=== PATIENT | female | born 1965 | race Hispanic/Latino ===

== ENCOUNTER 2019-02-19 07:12 | Observation (INO) | payer BC ==
[~2019-02-19] VITALS: Ht 157.5 cm; Wt 72.6 kg
[2019-02-19 07:54] LABS: BASOPHILS # (AUTO) 0.1 (0.0-0.1); BASOPHILS % 0.7 % (0.0-1.0); EOSINOPHILS # (AUTO) 0.1 (0.0-0.4); EOSINOPHILS % 1.6 % (0.0-6.0); HEMATOCRIT 41.7 % (34.2-44.1); HEMOGLOBIN 14.9 g/dL (12.0-16.0); LYMPHOCYTES # (AUTO) 2.7 (1.0-3.2); MEAN CORPUSCULAR HEMOGLOBIN 30.2 pg (28-32); MEAN CORPUSCULAR HGB CONC 35.7 g/dL (31-35); MEAN CORPUSCULAR VOLUME 84.6 fL (81-99); MONOCYTES # (AUTO) 0.6 (0.2-0.8); MONOCYTES % 7.7 % (4.4-11.3); NEUTROPHILS # (AUTO) 4.2 (2.1-6.9); NEUTROPHILS % 54.6 % (38.7-80.0); PLATELET COUNT 200 x10e3/uL (140-360); RED BLOOD COUNT 4.93 x10e6/uL (3.6-5.1); RED CELL DISTRIBUTION WIDTH 13.3 % (11.7-14.4)
[2019-02-19 07:56] LABS: BILIRUBIN,URINE NEGATIVE (NEGATIVE); CLARITY,URINE SL CLOUDY (CLEAR); COLOR,URINE ORANGE (YELLOW); KETONES,URINE NEGATIVE (NEGATIVE); LEUKOCYTE ESTERASE ,URINE NEGATIVE (NEGATIVE); NITRITE,URINE NEGATIVE (NEGATIVE); PROTEIN,URINE DIPSTICK NEGATIVE (NEGATIVE); URINE UROBILINOGEN 0.2 mg/dL (0.2 - 1)
[2019-02-19 08:28] LABS: ALANINE AMINOTRANSFERASE 40 IU/L (0-55); ALBUMIN 4.1 g/dL (3.5-5.0); ALBUMIN/GLOBULIN RATIO 1.4 (0.8-2.0); ALKALINE PHOSPHATASE 119 IU/L (40-150); ANION GAP 11.2 mmol/L (8-16); BLOOD UREA NITROGEN 12 mg/dL (7-26); BUN/CREATININE RATIO 16 (6-25); CALCIUM 9.6 mg/dL (8.4-10.2); CARBON DIOXIDE 26 mmol/L (22-29); CHLORIDE 105 mmol/L (98-107); CREATINE KINASE 46 IU/L (29-168); CREATININE, SERUM 0.75 mg/dL (0.57-1.11); EST GLOMERULAR FILTRATION RATE > 60 ML/MIN (60-); GLUCOSE 140 mg/dL (74-118); POTASSIUM 3.2 mmol/L (3.5-5.1); SODIUM 139 mmol/L (136-145)
--- NOTE | 2019-02-19 08:29 | Diagnostic Imaging Report ---
EXAMINATION: CHEST SINGLE (PORTABLE) INDICATION: Chest pain. COMPARISON: None FINDINGS: TUBES and LINES: None. LUNGS: Lungs are well inflated. There is a 1.2 cm nodular opacity at the right lung apex. There is hyperdensity at the right lung apex at the location of the first rib, which may represent overlying bone versus apical calcifications. Mild patchy left basilar opacity, likely atelectasis. No evidence of pulmonary edema. PLEURA: No pleural effusion or pneumothorax. HEART AND MEDIASTINUM: The cardiomediastinal silhouette is unremarkable. BONES AND SOFT TISSUES: No acute osseous abnormality. UPPER ABDOMEN: No free air under the diaphragm. IMPRESSION: No acute radiographic abnormality. A 1.2 cm nodular opacity at the right lung apex. Chest CT is recommended for further evaluation. Signed by: Dr. Hamlet Victor MD on 02/19/2019 8:26 AM
[2019-02-19] MEDS ORDERED: ASPIRIN 325 MG TAB PO ONE (08:45)
[2019-02-19 08:50] LABS: INR 0.86; PROTHROMBIN TIME 12.2 seconds (11.9-14.5)
[2019-02-19 08:51] LABS: PARTIAL THROMBOPLASTIN TIME 32.6 seconds (23.8-35.5)
[2019-02-19 09:06] LABS: EPITHELIAL CELLS,URINE RARE /LPF; RBC,URINE 0-5 /HPF (0-5)
[2019-02-19] MEDS ORDERED: POTASSIUM CHLORIDE 20 MEQ TAB CR PO STA (10:21)
--- NOTE | 2019-02-19 11:14 | Diagnostic Imaging Report ---
EXAM: CT Chest WITH contrast- Pulmonary Embolism Protocol INDICATION: Abdominal pain, tachycardia, query pulmonary embolism. Possible pulmonary nodule on chest radiograph. COMPARISON: Chest radiograph 02/19/2019. TECHNIQUE: Chest was scanned utilizing a multidetector helical scanner from the lung apex through the level of the diaphragm after administration of IV contrast. Thin section reconstructions were obtained with special concentration on the pulmonary arteries. Coronal and sagittal reformations were obtained. Pulmonary embolism protocol was performed. IV CONTRAST: 100 cc of Isovue 370 RADIATION DOSE: Total DLP: 554.5 mGy*cm Dose modulation, iterative reconstruction, and/or weight based adjustment of the mA/kV was utilized to reduce the radiation dose to as low as reasonably achievable. COMPLICATIONS: None FINDINGS: LINES/ TUBES: None. PULMONARY ARTERIES: No filling defect is identified within the pulmonary arteries to the segmental level. The subsegmental pulmonary arteries are not well opacified. Main pulmonary artery measures 2.5 cm in diameter. LUNGS AND AIRWAYS: The central airways are patent. There is biapical pleural-parenchymal opacity, consistent with prior granulomatous disease. A bone island in the right anterior third rib corresponds to the opacity noted on prior chest radiograph without definite pulmonary nodule. Scattered dependent atelectasis. Mild mosaic attenuation. No evidence of pneumonia or pulmonary edema. PLEURA: The pleural spaces are clear. HEART AND MEDIASTINUM: The thyroid gland is normal. No mediastinal, hilar or axillary lymphadenopathy. The heart is normal in size.. There is no pericardial effusion. . UPPER ABDOMEN: Limited contrast-enhanced views of the upper abdomen. Hepatic steatosis. Focal hyperdensity in the caudate lobe and adjacent to the gallbladder likely represents focal fatty sparing. BONES: No acute osseous abnormality. Sclerotic lesion of the right anterior third rib likely represents a bone island. SOFT TISSUES: Unremarkable. IMPRESSION: No evidence of pulmonary embolism to the level of the segmental pulmonary arteries. A bone island in the right anterior third rib corresponds to the opacity noted on prior chest radiograph. No evidence of pulmonary nodule. Mosaic attenuation in the lungs may represent air trapping or microvascular disease. Signed by: Dr. Hamlet Victor MD on 02/19/2019 11:11 AM
[2019-02-19] MEDS ORDERED: ONDANSETRON HCL INJ 2MG/ML 2ML 2 MG/ML VIAL IV PRN (12:00)
[2019-02-19] MEDS ORDERED: NITROGLYCERIN 0.4 MG SUBL SL PRN (12:00)
[2019-02-19] MEDS: FAMOTIDINE 20 MG TAB PO SCH (12:00)
[2019-02-19] MEDS ORDERED: ASPIRIN 81 MG CHEW TAB PO ONE (12:00)
--- OUTSIDE RECORDS SUMMARY | 2019-02-19 12:29 | XMS REPORT ---
Author Author [facility] Address Unknown Phone Unavailable Care Team Providers Care Planograph Operator Name Role Phone Hyun LAZAR Unavailable Unavailable Problems This patient has no known problems. Allergies, Adverse Reactions, Alerts This patient has no known allergies or adverse reactions. Medications This patient has no known medications. Results Test Description Test Time Test Comments Text Results Atomic Results Result Comments CT CHEST W 2019-02-19 11:02:00 [place] [address] Patient Name: MADI CHUA MR #: [id number] : 1965 Age/Sex: 53/F Req #: [id number] [facility] Physician: Ordered by: EDER LAZAR MD Report #: [id number] Location: ER Room/Bed: Procedure: [id number] CT/CT CHEST W Exam Date: 02/19/19 Exam Time: 1000 REPORT STATUS: Signed EXAM: CT Chest WITH contrast- Pulmonary Embolism Protocol INDICATION: Abdominal pain, tachycardia, query pulmonary embolism. Possible pulmonary nodule on chest radiograph. COMPARISON: Chest radiograph 02/19/2019. TECHNIQUE: Chest was scanned utilizing a multidetector helical scanner from the lung apex through the level of the diaphragm after administration of IV contrast. Thin section reconstructions were obtained with special concentration on the pulmonary arteries. Coronal and sagittal reformations were obtained. Pulmonary embolism protocol was performed. IV CONTRAST: 100 cc of Isovue 370 RADIATION DOSE: Total DLP: 554.5 mGy*cm Dose modulation, iterative reconstruction, and/or weight based adjustment of the mA/kV was utilized to reduce the radiation dose to as low as reasonably achievable. COMPLICATIONS: None FINDINGS: LINES/ TUBES: None. PULMONARY ARTERIES: No filling defect is identified within the pulmonary arteries to the segmental level. The subsegmental pulmonary arteries are not well opacified. Main pulmonary artery measures 2.5 cm in diameter. LUNGS AND AIRWAYS: The central airways are patent. There is biapical pleural-parenchymal opacity, consistent with prior granulomatous disease. A bone island in the right anterior third rib corresponds to the opacity noted on prior chest radiograph without definite pulmonary nodule. Scattered dependent atelectasis. Mild mosaic attenuation. No evidence of pneumonia or pulmonary edema. PLEURA: The pleural spaces are clear. HEART AND MEDIASTINUM: The thyroid gland is normal. No mediastinal, hilar or axillary lymphadenopathy. The heart is normal in size.. There is no pericardial effusion. . UPPER ABDOMEN: Limited contrast-enhanced views of the upper abdomen. Hepatic steatosis. Focal hyperdensity in the caudate lobe and adjacent to the gallbladder likely represents focal fatty sparing. BONES: No acute osseous abnormality. Sclerotic lesion of the right anterior third rib likely represents a bone island. SOFT TISSUES: Unremarkable. IMPRESSION: No evidence of pulmonary embolism to the level of the segmental pulmonary arteries. A bone island in the right anterior third rib corresponds to the opacity noted on prior chest radiograph. No evidence of pulmonary nodule. Mosaic attenuation in the lungs may represent air trapping or microvascular disease. Signed by: Dr. Naseem Tinsley MD on 02/19/2019 11:11 AM Dictated By: NASEEM TINSLEY MD 1111 Transcribed By: KARL on 02/19/19 1111 COPY TO: EDER LAZAR MD CHEST SINGLE (PORTABLE) 2019-02-19 08:21:00 [place] [address] Patient Name: MADI CHUA MR #: [id number] : 1965 Age/Sex: 53/F Req #: [id number] Adm Physician: Ordered by: EDER LAZAR MD Report #: [id number] Location: Room/Bed: Procedure: [id number] DX/CHEST SINGLE (PORTABLE) Exam Date: 02/19/19 Exam Time: 804 REPORT STATUS: Signed EXAMINATION: CHEST SINGLE (PORTABLE) INDICATION: Chest pain. COMPARISON: None FINDINGS: TUBES and LINES: None. LUNGS: Lungs are well inflated. There is a 1.2 cm nodular opacity at the right lung apex. There is hyperdensity at the right lung apex at the location of the first rib, which may represent overlying bone versus apical calcifications. Mild patchy left basilar opacity, likely atelectasis. No evidence of pulmonary edema. PLEURA: No pleural effusion or pneumothorax. HEART AND MEDIASTINUM: The cardiomediastinal silhouette is unremarkable. BONES AND SOFT TISSUES: No acute osseous abnormality. UPPER ABDOMEN: No free air under the diaphragm. IMPRESSION: No acute radiographic abnormality. A 1.2 cm nodular opacity at the right lung apex. Chest CT is recommended for further evaluation. Signed by: Dr. Naseem Tinsley MD on 02/19/2019 8:26 AM Dictated By: NASEEM TINSLEY MD 5 Transcribed By: KARL on 02/19/19825 COPY TO: EDER LAZAR MD
[2019-02-19 14:00] VITALS: BP 119/88
[2019-02-19] MEDS ORDERED: ZANTAC 7575 MG (14:10)
[2019-02-19] MEDS ORDERED: HYDRALAZINE HCL 20 MG/ML VIAL IV PRN (15:00)
[2019-02-19] MEDS ORDERED: ACETAMINOPHEN 325 MG TAB PO PRN (15:00)
[2019-02-19 16:14] VITALS: BP 116/82
[2019-02-19] MEDS ORDERED: IOPAMIDOL 370 MG/ML 200 ML INFUS..BTL INJ ONE (16:30)
[2019-02-19] MEDS ORDERED: SODIUM CHLORIDE 0.9% 50ML 50 ML ONE (16:30)
[2019-02-19 16:37] LABS: CREATINE KINASE MB 1.1 ng/mL (0-5.0)
[2019-02-19 20:00] VITALS: BP 126/65
[2019-02-19 21:28] VITALS: BP 126/65
--- NOTE | 2019-02-19 23:08 | Consultation ---
DATE OF CONSULTATION: 02/19/2019 Cardiology Consultation REASON FOR CONSULTATION: Palpitations. HISTORY OF PRESENT ILLNESS: This is a 53-year-old woman without significant past medical history, who presents with complaints of chest tightness and palpitations. The patient reports she drove back from [place] yesterday evening. When she laid down at night to sleep, she felt palpitations that were worse than usual. This was associated with epigastric pain and chest tightness, 7/10 to 8/10 in severity. She reports she took an aspirin and then went to sleep. When she woke up this morning, she fell week. She therefore presented to the ER for further evaluation. Of note, the patient reports she has been having palpitations at night for approximately the last month and had an episode of dizziness while walking last week. She does drink 2 cups of coffee a day and endorses 2 to 3 margaritas a week. Otherwise, denies any edema, orthopnea, or PND. REVIEW OF SYSTEMS: Negative except as per HPI. PAST MEDICAL HISTORY: None. PAST SURGICAL HISTORY: section. SOCIAL HISTORY: No tobacco or illicit drugs. She does drink 2 to 3 margaritas a week. FAMILY HISTORY: Denies. PHYSICAL EXAMINATION: VITAL SIGNS: Temperature 98.1 degrees, pulse 64, respiratory rate 16, blood pressure 136/95, and oxygen saturation 99% on room air. GENERAL: Well-developed, well-nourished woman, in no acute distress. HEENT: Normocephalic, atraumatic. Pupils equal. No scleral icterus. NECK: Supple. No thyromegaly or cervical lymphadenopathy. No carotid bruits. LUNGS: Clear to auscultation bilaterally. No wheezes or crackles. CARDIOVASCULAR: Normal rate, regular rhythm. No murmur. Normal S1 and S2. ABDOMEN: Soft, nontender. EXTREMITIES: No edema. NEUROLOGIC: Nonfocal exam. LABORATORY DATA: WBC 7.58, hemoglobin 14.9, hematocrit 41.7, platelets 200. Sodium 139, potassium 3.2, chloride 105, CO2 of 26, BUN 12, creatinine 0.75. Troponin less than 0.001. TSH 2.151. CT of the chest, no evidence of pulmonary embolism to the level of the segmental pulmonary arteries. Bone island in the right anterior third rib, mosaic attenuation in the lungs, may represent air trapping or microvascular disease. EKG, normal sinus rhythm, normal ECG. IMPRESSION: 1. Palpitations. 2. Chest pain. RECOMMENDATIONS: Trend cardiac enzymes to rule out myocardial infarction. Obtain echocardiogram. The patient will need outpatient Holter monitor to evaluate her palpitations. If she rules out for myocardial infarction, she can be discharged home for outpatient nuclear stress test. Thank you for this consult. We will continue to follow. Shantal Robertson MD ABS/MODL /[id number]
[2019-02-20] VITALS: BP 106/65
[2019-02-20] MEDS: FAMOTIDINE 20 MG TAB PO SCH (02:12)
[2019-02-20 02:31] LABS: CREATINE KINASE 34 IU/L (29-168)
[2019-02-20 04:00] VITALS: BP 118/72
[2019-02-20 05:42] LABS: BASOPHILS % 0.6 % (0.0-1.0); EOSINOPHILS # (AUTO) 0.2 (0.0-0.4); EOSINOPHILS % 2.4 % (0.0-6.0); HEMATOCRIT 41.1 % (34.2-44.1); HEMOGLOBIN 14.2 g/dL (12.0-16.0); LYMPHOCYTES # (AUTO) 2.8 (1.0-3.2); LYMPHOCYTES % 42.9 % (18.0-39.1); MEAN CORPUSCULAR HEMOGLOBIN 30.1 pg (28-32); MEAN CORPUSCULAR HGB CONC 34.5 g/dL (31-35); MEAN CORPUSCULAR VOLUME 87.1 fL (81-99); MONOCYTES # (AUTO) 0.5 (0.2-0.8); MONOCYTES % 7.3 % (4.4-11.3); NEUTROPHILS # (AUTO) 3.1 (2.1-6.9); NEUTROPHILS % 46.3 % (38.7-80.0); PLATELET COUNT 201 x10e3/uL (140-360); RED BLOOD COUNT 4.72 x10e6/uL (3.6-5.1); RED CELL DISTRIBUTION WIDTH 13.2 % (11.7-14.4)
[2019-02-20 05:54] LABS: ANION GAP 10.7 mmol/L (8-16); BLOOD UREA NITROGEN 18 mg/dL (7-26); BUN/CREATININE RATIO 23 (6-25); CALCIUM 9.3 mg/dL (8.4-10.2); CARBON DIOXIDE 27 mmol/L (22-29); CHLORIDE 103 mmol/L (98-107); CHOL/HDL RATIO 2.9 (3.0-3.6); CHOLESTEROL 144 MD/DL (0-199); CREATININE, SERUM 0.78 mg/dL (0.57-1.11); EST GLOMERULAR FILTRATION RATE > 60 ML/MIN (60-); GLUCOSE 115 mg/dL (74-118); HDL CHOLESTEROL 50 MG/DL (40-60); LDL CHOLESTEROL 75 MG/DL (60-130); POTASSIUM 3.7 mmol/L (3.5-5.1); SODIUM 137 mmol/L (136-145); TRIGLYCERIDES 94 MG/DL (0-149)
--- NOTE | 2019-02-20 07:20 | NUR ---
Walking rounds done and report received. Patient is awake and alertx3 in NAD. She denies any CP or SOB at this time. Tele #[phone], [phone]. Patient instructed to call for assistance as needed and verbalized understanding. Call lopez within reach.
[2019-02-20 08:07] VITALS: BP 111/79
[2019-02-20] MEDS ORDERED: METOCLOPRAMIDE10 MG PO (08:58)
[2019-02-20] MEDS ORDERED: LORAZEPAM0.5 MG PO (08:58)
[2019-02-20] MEDS ORDERED: FAMOTIDINE20 MG PO (08:58)
[2019-02-20] MEDS ORDERED: ASPIRIN 81 MG ENTERIC COATED PO SCH (09:00)
[2019-02-20] MEDS ORDERED: ONDANSETRON HCL 4 MG ORAL DISINTEGRATING TAB PO PRN (09:30)
--- NOTE | 2019-02-20 10:55 | NUR ---
Patient discharged home with written instructions and prescription. She verbalized understanding. IV dc'd, cath intact and small dressing applied. provided ride home.
--- NOTE | 2019-02-20 13:20 | Progress Note ---
DATE: 02/20/2019 Cardiology Progress Note SUBJECTIVE: The patient denies chest pain or shortness of breath. OBJECTIVE: VITAL SIGNS: Temperature 97.5 degrees, pulse 65, respiratory rate 16, blood pressure 111/79, oxygen saturation 97% on room air. GENERAL: Awake, alert, in no acute distress. LUNGS: Clear to auscultation bilaterally. No wheezes or crackles. CARDIOVASCULAR: Normal rate. Regular rhythm. No murmur. Normal S1, S2. ABDOMEN: Soft, nontender. EXTREMITIES: No edema. NEURO: Nonfocal exam. LABORATORY DATA: WBC 6.6, hemoglobin 14.2, hematocrit 41.1, platelets 201. Sodium 137, potassium 3.7, chloride 103, CO2 of 27, BUN 18, and creatinine 0.78. Troponin less than 0.001. LDL 75. TELEMETRY: Normal sinus rhythm. IMPRESSION: 1. Palpitations. 2. Chest pain. RECOMMENDATIONS: The patient ruled out for myocardial infarction with serial cardiac biomarkers. Echocardiogram does show normal LV systolic function. The patient will need outpatient Holter monitor to evaluate her palpitations. Plan for outpatient nuclear stress test at that time. Thank you for this consult. We will continue to follow. Shantal Robertson MD ABS/MODL /[id number]
--- NOTE | 2019-02-21 05:13 | Discharge Summary ---
ADMISSION DIAGNOSES: Chest pain and palpitations. DISCHARGE DIAGNOSES: Chest pain and palpitations, rule out acute coronary syndrome plus anxiety. HISTORY: None. SURGICAL HISTORY: . FAMILY HISTORY: Noncontributory. SOCIAL HISTORY: Occasional alcohol use. HOSPITAL COURSE: A 53-year-old female complains of chest pain and palpitations that began on 02/18/2019, while driving back from [place]. The palpitations got worse when she laid down and felt weak when she woke up. She complains of intermittent palpitations over the last month, so usually at night when she lays down. She seems to think that the palpitations are due to anxiety as she gets really anxious, while she drives. On admission, the patient had a chest x-ray with no acute abnormality, 1.2 cm nodule opacity in the right lung apex. CT of the chest was ordered that showed no evidence of PE. Bone island in the right anterior 3rd rib corresponds to the opacity noted on the chest x-ray. No evidence of pulmonary nodule. Cardiology was consulted, who said the patient can follow up outpatient for a Holter monitor evaluation. NV was ruled out. Echo showed an EF of 55% or more. Troponins were negative x3. The patient will discharge home with a prescription for Pepcid, lorazepam, and Reglan. The patient understands discharge instructions and agrees to plan. Vital signs stable, the patient is afebrile. Dictated by Nila Shane NP MD YASIR Estrada/MICHELLE /[id number]
== END 2019-02-20 10:53 | disposition home or self-care (01) ==
LOC: ER 07:12 → ERHOLD 12:25 → MED/SURG2 14:39
PROVIDERS: ADMIT Internal Medicine; ATTEND Internal Medicine
DX: R00.2 Palpitations (principal); R07.9 Chest pain, unspecified; R06.00 Dyspnea, unspecified; E87.6 Hypokalemia; F41.9 Anxiety disorder, unspecified; Z72.89 Other problems related to lifestyle
CPT/HCPCS: 36415 ×2; 71045; 71260; 80048; 80053; 80061; 81001; 82550 ×2; 82553 ×2; 84443; 84484 ×2; 85025 ×2; 85379; 85610; 85730; 93005; 93306; 99284; G0378 ×2; Q9967